=== PATIENT | female | born 1955 | race Caucasian/White ===

== ENCOUNTER 2016-08-03 21:08 | Emergency (ER) | payer OTHER ==
[~2016-08-03] VITALS: Ht 149.9 cm; Wt 63.7 kg
[~2016-08-03 21:08] MED LIST: EPP3/2 IM; HYDC25 PO; PRLSR20 PO; [UNRECOGNIZED DRUG - OTHER] PO
[2016-08-03 21:34] VITALS: TEMP 36.9; Ht 149.9 cm; Wt 63.7 kg
[2016-08-03 21:48] VITALS: O2SAT 98
[2016-08-03] MEDS ORDERED: DiphenhydrAMINE HCL 50 MG/ML VIAL IV STA (21:50)
[2016-08-03] MEDS ORDERED: FAMOTIDINE 20MG/102 ML D5W IV STA (21:50)
[2016-08-03] MEDS ORDERED: DEXAMETHASONE SOD INJ 10 MG/ML VIAL IV ONE (22:00)
[2016-08-03] MEDS ORDERED: PRED50TA PO (23:15)
--- NOTE | 2016-08-03 23:38 | EMERGENCY ROOM VISIT NOTE ---
History First contact with patient: 21:44 Chief Complaint: ALLERGIC REACTION Stated Complaint: HIVES Nursing Triage Summary: pt states she woke this morning with mild left cheek swelling upper lip is now swollen denies sob or difficulty swallowing zantac 150 mg at 1930 pt states she has had similar episodes in the past History of Present Illness The patient is a 60 year old female who presents to the Emergency Room with complaints of sudden onset of upper lip swelling that has happened before. She has seen an sponsorship coordinator with an unclear etiology for her allergic reactions. She is not on an ENEDINA inhibitor or on ARB. Patient denies chest pain, dyspnea, throat tightness, rash, itchiness, abdominal pain, diaphoresis, vomiting, diarrhea. She is not tried nothing for her allergic reaction. Patient states she has an EpiPen and is not . She states she does not need another one. Review of Systems See HPI for pertinent positives & negatives. A total of 10 systems reviewed and were otherwise negative. Past Medical/Surgical History HTN, HLP, Allergic Reaction Social History Smoking Status: Never Smoker Drug Use: none Marital Status: Housing Status: lives with family Current/Historical Medications Scheduled Hydrochlorothiazide (Hctz *), 25 MG PO DAILY Omeprazole (Prilosec), 20 MG PO DAILY Prednisone (Prednisone), 50 MG PO DAILY [cholestero med], 1 DOSE PO DAILY Scheduled PRN Epinephrine (Epipen), 0.3 MG IM UD PRN for ALLERGIC REACTION Allergies Coded Allergies: Penicillins (Verified Allergy, Unknown, 12/16/14) Sulfa Antibiotics (Verified Allergy, Unknown, HIVES, 12/16/14) Physical Exam Vital Signs Date Time Temp Pulse Resp B/P Pulse Ox O2 Delivery O2 Flow Rate FiO2 08/03/16 22:43 77 16 149/88 97 Room Air 08/03/16 21:50 78 08/03/16 21:48 98 Room Air 08/03/16 21:34 36.9 78 22 174/89 95 Room Air Physical Exam VITALS: Vitals are noted on the nurse's note and reviewed by myself. Vital signs stable. GENERAL: Pleasant female speaking in full sentences, in no acute distress, nondiaphoretic, well-developed well-nourished. SKIN: The skin was without rashes, erythema, edema, or bruising. There is no tenting of the skin. Capillary reflex less than 2 seconds. HEAD: Normocephalic atraumatic. No facial swelling EARS: External auditory canals clear, tympanic membranes pearly singh without erythema or effusion bilaterally. EYES: Pupils equal round and reactive to light and accommodation. Conjunctivae without injection, sclerae without icterus. Extraocular movements intact. NOSE: Patent, turbinates without inflammation or discharge. No sinus tenderness. MOUTH: Mucous membranes moist. Upper lip edematous with no airway or tongue involvement Pharynx without erythema or exudate. Uvula midline. Airway patent. Tongue does not deviate. NECK: Supple without nuchal rigidity. No lymphadenopathy. No thyromegaly. Cervical spine is nontender. No JVD. HEART: Regular rate and rhythm without murmurs gallops or rubs. LUNGS: Clear to auscultation bilaterally without wheezes, rales or rhonchi. No dullness to percussion. No retractions or accessory muscle use. ABDOMEN: Positive bowel sounds x 4. Normal tympanic percussion. Soft, nontender, without masses or organomegaly. Lyons sign negative. No guarding or rebound tenderness. MUSCULOSKELETAL: No muscle atrophy, erythema, or edema noted. NEURO: Patient was alert and oriented to person place and time. Normal sensation to light and sharp touch. No focal neurological deficits. Medical Decision & Procedures Medications Administered Medications (Trade) Dose Ordered Sig/Abad Route Start Time Stop Time Status Last Admin Dose Admin Dexamethasone Sodium Phosphate (Decadron Inj) 10 mg NOW ONCE IV 08/03/16 22:00 08/03/16 22:01 DC 08/03/16 22:01 10 MG Diphenhydramine HCl (Benadryl Inj) 50 mg NOW STAT IV 08/03/16 21:50 08/03/16 21:51 DC 08/03/16 22:01 50 MG Famotidine (Pepcid 20mg/100 ml) 20 mg ONE STAT IV 08/03/16 21:50 08/03/16 21:52 DC 08/03/16 22:01 20 MG ED Course Prior records/ancillary studies reviewed. Triage Nursing notes reviewed. Additional history obtained from . The patient's history was concerning for possible allergic reaction. Differential diagnosis: Etiologies such as allergic reaction, anaphylaxis, urticaria, Pickens-Bob syndrome, toxic epidermal necrolysis, erythema multiforme, cellulitis, as well as others were entertained. Physical examination: As above. ER treatment provided: Continuous cardiac monitoring Benadryl 50 mg IV Pepcid 20 mg IV Decadron 10 mg IV On reassessment the patient felt better. Diagnostic interpretation by me: Deferred It appears the patient had an allergic reaction. The above treatment did well to reverse the symptoms. After prolonged monitoring and frequent reassessments the patient did very well and symptoms resolved. The patient was counseled on the spectrum of this disease process and told to avoid potential triggers. I gave my usual and customary discussion regarding this issue. By the evaluation outlined above emergent etiologies such as recurring anaphylaxis, anaphylatic shock, airway compromise, Pickens-Bob syndrome, toxic epidermal necrolysis, erythema multiforme, infectious etiologies, as well as others were deemed relatively unlikely. The pt informed about the findings as listed above. All questions were answered and pleased with the treatment. Return instructions were outlined and the patient was discharged in stable condition. Outpatient prescription management: prednisone Referral: The patient was referred back to primary care physician for follow-up in 2-3 days for a recheck of the current condition. or The patient was referred to Allergy/Immunology for further evaluation. Medical Decision as above Impression Primary Impression: Allergic reaction Departure Information Dispostion Home / Self-Care Condition GOOD Prescriptions Prednisone (Prednisone) 50 Mg Tab 50 MG PO DAILY for 4 Days, #4 TAB Prov: Teresita Rojas .NISHANT 08/03/16 Forms HOME CARE DOCUMENTATION FORM, Work Instructions, Return To Work: 1 day IMPORTANT VISIT INFORMATION Patient Instructions My [facility], ED Allergic Reaction General Other Additional Instructions DO NOT drive, drink alcohol, operate machinery, or perform dangerous activities today. You were given medications in the ER that can affect your ability to safely function or operate a vehicle. Epi-Pen: Use one injection as instructed for severe allergic reactions associated with shortness of breath, difficulty breathing, or throat or tongue swelling. If you use this injection call 911 or proceed immediately to the nearest Emergency Room. Prednisone 50mg: Once daily until the prescription is finished. It is best to take this earlier in the day as some patients note occasional difficulty falling asleep when taken in the late evening. Diphenhydramine(Benadryl) 25mg: use 25 to 50 mg every six hours for swelling, itching, or hives. This medication is sedating and will cause drowsiness. Avoid alcohol, operating machinery or dangerous equipment, working on ladders or roofs, DRIVING, or situations where being under the influence may be dangerous. Zantac 75: Take two pills twice a day along with Benadryl as needed for swelling , itching, or hives. Most people know this for its affect on the stomach, but it also acts similar to, but less potent than Benadryl for allergic reactions. Both the Benadryl and the Zantac are available [id number]. Continue current medications. Return to the emergency department for worsening of your rash, swelling of your face, lips, tongue, or throat, difficulty breathing, vomiting, or as needed. Follow-up with your primary care physician in 2 to 3 days for a recheck of your current condition. Work Instructions Return To Work: 1 day Problem Qualifiers Primary Impression: Allergic reaction Encounter type: initial encounter Qualified Codes: T78.40XA - Allergy, unspecified, initial encounter
[2016-08-03 23:46] VITALS: BP 150/84; PULSE 73; O2SAT 94
== END 2016-08-03 23:47 | disposition home or self-care (01) ==
LOC: C.EDB 21:09 → C.EDC 23:47
DX: T78.40XA Allergy, unspecified, initial encounter (principal); X58.XXXA Exposure to other specified factors, initial encounter; I10 Essential (primary) hypertension; E78.5 Hyperlipidemia, unspecified; Z79.899 Other long term (current) drug therapy; Z88.0 Allergy status to penicillin; Z88.2 Allergy status to sulfonamides

== ENCOUNTER → 2017-04-19 | Outpatient (CLI) | payer OTHER ==
--- NOTE | 2017-04-20 14:26 | MAMMOGRAPHY REPORT ---
BILATERAL DIGITAL SCREENING MAMMOGRAM TOMOSYNTHESIS WITH CAD: 04/19/2017 CLINICAL HISTORY: Routine screening examination. TECHNIQUE: Breast tomosynthesis in addition to standard 2D mammography was performed. Current study was also evaluated with a Computer Aided Detection (CAD) system. COMPARISON: Comparison is made to exams dated: 04/13/2016 mammogram, 04/08/2015 mammogram, 4 mammogram, 03/27/2013 mammogram, 03/21/2012 mammogram, and 03/16/2011 mammogram - [facility] [address] BREAST COMPOSITION: The tissue of both breasts is heterogeneously dense, which may obscure small mas ses. FINDINGS: The parenchymal pattern is similar to prior mammograms. There are a few benign coarse nayeli cifications in the breasts. No developing mass, architectural distortion or cluster of suspicious mi crocalcifications is seen. IMPRESSION: ACR BI-RADS CATEGORY 2: BENIGN There is no mammographic evidence of malignancy. A 1 year screening mammogram is recommended. The pa tient will receive written notification of the results. Approximately 10% of breast cancers are not detected with mammography. A negative mammographic report should not delay biopsy if a clinically suggestive mass is present. Hermelinda Daily M.D. ay/:04/19/2017 15:33:42 Desk Clerk: Gi MARIE)(Andrea), [facility] letter sent: Normal 1/2 BI-RADS Code: ACR BI-RADS Category 2: Benign
== END | disposition home or self-care (01) ==
LOC: C.MAMM 10:54
PROVIDERS: ATTEND Internal Medicine
DX: Z12.31 Encounter for screening mammogram for malignant neoplasm of breast (principal)